=== PATIENT | male | born 1975 | race Caucasian/White ===

== ENCOUNTER 2023-10-01 14:24 | Emergency (ER) | payer SELFPAY ==
[2023-10-01] MEDS ORDERED: diphenhydrAMINE 50 MG/ML VIAL ONE (15:17)
[2023-10-01] MEDS ORDERED: Sodium Chloride 0.9% 1,000 ML ONE (15:17)
[2023-10-01] MEDS ORDERED: Acetaminophen 500 MG TAB ONE (15:17)
[2023-10-01] MEDS ORDERED: Prochlorperazine 10 MG/2 ML VIAL ONE (15:17)
[2023-10-01] MEDS ORDERED: Ketorolac Tromethamine 30 MG (1 mL) VIAL ONE (15:17)
[2023-10-01 15:25] LABS: #Basophils 0.1 thou/uL (0.0-0.2); #Eosinphils 0.1 thou/uL (0.0-0.7); #Lymphocytes 1.7 thou/uL (1.20-3.40); #Monocytes 0.6 thou/uL (0.11-0.59); #Neutrophils 6.6 thou/uL (1.40-6.50); %Eosinophils 1.5 % (0.0-10.0); %Lymphocytes 18.6 % (21.0-51.0); %Monocytes 6.8 % (0.0-10.0); Hematocrit 45.8 % (42.0-52.0); Hemoglobin 15.3 g/dL (14.0-18.0); Mean Corpuscular HGB CONC 33.4 g/dL (32.0-36.0); Mean Corpuscular Volume 83.9 fl (78.0-98.0); Mean Platelet Volume 6.9 fL (7.4-10.4); Platelet Count 223 10x3/uL (130-400); RBC Distribution Width 11.7 % (11.5-14.5); Red Blood Cell (RBC) Count 5.45 mill/uL (4.70-6.10); White Blood Cell (WBC) Count 9.1 10x3/uL (4.8-10.8)
[2023-10-01 15:39] LABS: ALT (SGPT) 57 U/L (8-55); AST (SGOT) 27 U/L (5-34); Albumin 4.3 g/dL (3.5-5.0); Alkaline Phosphatase 153 U/L (40-110); Anion Gap 15 mmol/L (10-20); BUN (Urea Nitrogen) 13 mg/dL (8.9-20.6); Bilirubin, Total 0.5 mg/dL (0.2-1.2); Calc. Creatinine Clearance 0 mL/min (70-130); Calcium 9.5 mg/dL (7.8-10.44); Carbon Dioxide 21 mmol/L (22-29); Chloride 106 mmol/L (98-107); Estimated GFR 78; Glucose 108 mg/dL (70-105); Lipase 85 U/L (8-78); Potassium 3.9 mmol/L (3.5-5.1); Protein, Total 7.3 g/dL (6.0-8.3); Sodium 138 mmol/L (136-145)
[2023-10-01 17:42] LABS: CSF, Glucose 65 mg/dl (40-70); CSF, Protein 50.4 mg/dL (15-40)
[2023-10-01 17:47] LABS: Color Of CSF Supernatant COLORLESS (Colorless); Tube # 1; Unspun CSF Color COLORLESS (Colorless)
[2023-10-01 18:04] LABS: CSF RBC Count - Manual 0 /cu.mm (None Seen); CSF Source CSF; CSF WBC/NonHematics Count-Man 1 /cu.mm (0-5); Clarity Clear (Clear); Tube # 4
== END 2023-10-01 18:35 | disposition home or self-care (01) ==
LOC: NAV ERS 14:24
DX: G43.909 Migraine, unspecified, not intractable, without status migrainosus (principal); R19.7 Diarrhea, unspecified; I10 Essential (primary) hypertension; F17.220 Nicotine dependence, chewing tobacco, uncomplicated; Z79.899 Other long term (current) drug therapy
CPT/HCPCS: 70450; 80053; 82945; 83690; 84157; 85025; 87070; 87205; 89051; 96374; 96375; J0780; J1200; J1885; J7050

== ENCOUNTER 2023-11-22 09:40 | Emergency (ER) | payer OTHER, SELFPAY | END 2023-11-22 11:15 | disposition home or self-care (01) | LOC: NAV ERS 09:40 | DX: S93.601A Unspecified sprain of right foot, initial encounter (principal); S93.401A Sprain of unspecified ligament of right ankle, initial encounter; I10 Essential (primary) hypertension; K21.9 Gastro-esophageal reflux disease without esophagitis; F17.220 Nicotine dependence, chewing tobacco, uncomplicated; W22.8XXA Striking against or struck by other objects, initial encounter; Z79.899 Other long term (current) drug therapy | CPT/HCPCS: 96372 ==

== ENCOUNTER 2024-04-08 17:09 | Emergency (ER) | payer OTHER ==
[2024-04-08 17:30] LABS: #Basophils 0.1 thou/uL (0.0-0.2); #Eosinophils 0.1 thou/uL (0.0-0.7); #Lymphocytes 1.9 thou/uL (1.20-3.40); #Monocytes 0.6 thou/uL (0.11-0.59); #Neutrophils 4.7 thou/uL (1.40-6.50); %Basophils 1.5 % (0.0-1.0); %Eosinophils 1.9 % (0.0-10.0); %Lymphocytes 25.1 % (21.0-51.0); %Monocytes 7.7 % (0.0-10.0); %Neutrophils 63.8 % (42.0-75.0); Hematocrit 45.5 % (42.0-52.0); Hemoglobin 15.9 g/dL (14.0-18.0); Mean Corpuscular Hemoglobin 28.9 pg (27.0-31.0); Mean Corpuscular Volume 82.6 fl (78.0-98.0); Mean Platelet Volume 7.2 fL (7.4-10.4); Platelet Count 317 10x3/uL (130-400); RBC Distribution Width 11.3 % (11.5-14.5); Red Blood Cell (RBC) Count 5.51 mill/uL (4.70-6.10); White Blood Cell (WBC) Count 7.4 10x3/uL (4.8-10.8)
[2024-04-08] MEDS ORDERED: Aspirin Chewable 81 MG TAB ONE (17:39)
[2024-04-08] MEDS ORDERED: Nitroglycerin 2% Ointment 1 INCH/1 GM Packet ONE (17:39)
[2024-04-08 17:45] LABS: Troponin I 0.016 ng/mL (< 0.028)
[2024-04-08 17:48] LABS: ALT (SGPT) 40 U/L (8-55); AST (SGOT) 22 U/L (5-34); Albumin 4.2 g/dL (3.5-5.0); Alkaline Phosphatase 111 U/L (40-110); Anion Gap 14 mmol/L (10-20); BUN (Urea Nitrogen) 10 mg/dL (8.9-20.6); Bilirubin, Total 0.5 mg/dL (0.2-1.2); Calc. Creatinine Clearance 0 mL/min (70-130); Calcium 9.4 mg/dL (7.8-10.44); Carbon Dioxide 25 mmol/L (22-29); Chloride 104 mmol/L (98-107); Estimated GFR 90; Glucose 99 mg/dL (70-105); Protein, Total 7.2 g/dL (6.0-8.3); Sodium 139 mmol/L (136-145)
[2024-04-08 20:41] LABS: Troponin I Less than 0.010 ng/mL (< 0.028)
== END 2024-04-08 21:15 | disposition home or self-care (01) ==
LOC: NAV ERS 17:09
DX: I10 Essential (primary) hypertension (principal); E78.00 Pure hypercholesterolemia, unspecified; F17.220 Nicotine dependence, chewing tobacco, uncomplicated
CPT/HCPCS: 36415; 71045; 80053; 84484; 85025; 93005

== ENCOUNTER 2024-06-14 23:21 | Emergency (ER) | payer OTHER ==
[2024-06-14] MEDS ORDERED: Loperamide HCl 2 MG CAP ONE (23:57)
[2024-06-14] MEDS ORDERED: Ondansetron PF 4 MG/2 ML Vial ONE (23:58)
[2024-06-14] MEDS ORDERED: Promethazine HCl 25 MG/ML VIAL ONE (23:58)
[2024-06-14] MEDS ORDERED: Sodium Chloride 0.9% 500 ML ONE (23:58)
== END 2024-06-15 01:00 | disposition home or self-care (01) ==
LOC: NAV ERS 23:21
DX: K52.9 Noninfective gastroenteritis and colitis, unspecified (principal); I10 Essential (primary) hypertension; K21.9 Gastro-esophageal reflux disease without esophagitis; F17.210 Nicotine dependence, cigarettes, uncomplicated; Z79.899 Other long term (current) drug therapy
CPT/HCPCS: 96374; 96375; J2405; J2550; J7030